=== PATIENT | male | born 1960 | race Caucasian/White ===

== ENCOUNTER 2018-10-02 08:36 | Day surgery (SDC) | payer OTHER, SELFPAY ==
--- NOTE | 2018-10-02 | PATH_ITS ---
[facility] Accession Number: [id number] . 01 Material submitted: . ASCENDING COLON POLYP . 02 Diagnosis: Ascending Colon, Polyp, Biopsy: Tubular adenoma. MRV/10/06/2018 . 02 Electronically signed: . Sailaja Marcos MD, Pathologist NPI- [id number] . 01 Gross description: . ASCENDING COLON POLYP: Received in formalin are multiple fragment(s) of wagner, soft tissue measuring 0.7 x 0.6 x 0.2 cm in aggregate submitted entirely in 1 cassette(s) /CKI /CKI . 02 Pathologist provided ICD-10: D12.2 . 02 CPT . 388329 Performed at: 01 [facility] [place] [address] [id number] MD Hiro Apodaca MD Phone: [phone] Performed at: 02 [facility] [place] [address] [place], [place] [id number] MD Sailaja Marcos MD Phone: [phone]
[2018-10-02 09:05] VITALS: BP 131/84; PULSE 68; RESP 16; TEMP 36.4; O2SAT 98; BMI 30.9
[2018-10-02] MEDS: SODIUM CHLORIDE 0.9% 1,000 ML 200 ML IV (09:13)
--- NOTE | 2018-10-02 10:10 | PM.HP.1 ---
History of Present Illness Date Patient Seen: 10/02/18 Time Patient Seen: 10:11 Chief complaint: colonoscopy [id number] Narrative: Patient is gentleman whose last colonoscopy was 7 years ago. He was advised to have repeat exam in is here in follow-up. No family history and no personal history of colon cancer Patient History Medical History Hearing deficit (Chronic) Hemorrhoid (Chronic ~1978) Herpes (Chronic) Tinnitus (Chronic) Vision disorder (Chronic) Surgical History Anal fissure (Resolved ~2013) Anesthesia (Resolved) History of tonsillectomy (~1967) Status post hemorrhoidectomy (~1987) Status post hemorrhoidectomy (~1990) Family & Social History Family History: Reviewed 10/02/18 by Christian Deal MD Social History: household members spouse Tobacco & Substance use: Smoking Status Never smoker alcohol intake current Meds Home Medications Medication Instructions Recorded Confirmed Type aspirin 81 mg tablet,delayed 81 mg PO DAILY 07/22/18 07/22/18 History release ketoconazole 2 % topical cream See Label Instructions TOP BID #30 07/22/18 Rx gram atorvastatin [Lipitor] 20 mg PO HS #90 tab 07/28/18 Rx Allergies Allergy/AdvReac Type Severity Reaction Status Date / Time No Known Drug Allergies Allergy Verified 07/22/18 09:54 Exam Vital Signs (past 8 hours): - 10/02/18 09:05 Temperature 97.5 F L Pulse Rate 68 Respiratory Rate 16 Blood Pressure 131/84 Pulse Oximetry 98 Oxygen Delivery Method Room Air Narrative Exam Narrative: No apparent distress. Pupils are small equal. Lungs are clear no rales or rhonchi heart regular rate and rhythm no murmur gallop abdomen is scaphoid soft nontender without mass. Alert and oriented x3. Assessment & Plan Plan: Assessment/Plan Narrative: Proceed to colonoscopy. I have discussed the procedure and the rationale with the patient including risks of bleeding, perforation which would necessitate a major operation, failure to find remove all lesions and the potential to tattoo. They appeared to understand and wished to proceed.
--- NOTE | 2018-10-02 10:13 | PM.PREOP ---
Pre-operative Note Interval Note Pre-op Check: Yes History & Physical exam performed today by Physician Changes: No ASA Class (for procedural sedation): I
[2018-10-02] MEDS: fentaNYL 250 MCG/5 ML INJ IV (10:28)
[2018-10-02] MEDS: MIDAZOLAM 5 MG/5 ML VIAL IV (10:29)
--- NOTE | 2018-10-02 10:43 | PM.OP.ENDO ---
Operative Date/Time/Diagnoses Date of procedure: 10/02/18 Time of procedure: 10:43 Pre-op diagnosis: Screening examination. Last colonoscopy 7 years ago. Post-op diagnosis: same (Small polyp ascending colon. Sigmoid diverticulosis.) Procedure & Clinicians Study performed: Colonoscopy with cold biopsy Same procedure as scheduled: Yes Indications: screening Surgeon: Christian Deal Procedure Notes SCOAP/Timeout: Performed Procedure in detail: The patient was placed in the left lateral decubitus position and underwent IV sedation directed by the surgeon consisting of fentanyl and Versed. Digital exam was remarkable for an increased sphincter tone. Prostate is flat.. The scope was inserted and advanced through the rectum into the sigmoid, descending, transverse, and ascending colon. I noted the patient had sigmoid diverticulosis. No other lesions were seen. The cecum was reached by inserting a stiffener. I identified by the ileocecal valve and the appendiceal opening. The scope was gradually brought out. A small single Polyp was identified and removed in the distal ascending colon. I continued outward slowly.. The scope ultimately was retroflexed in the rectum. The appearance was normal. The scope was removed and the patient tolerated the procedure well prep. Prep was good. Scope withdrawal time: 12 min Sedation minutes: 30 Findings: diverticulosis (Sigmoid) and polyp (One very small polyp) Specimen(s): other (Polyp) Complications: none Recommendations: Colonscopy in 5 years (Unless this polyp is not neoplastic. Then 10 years would be more appropriate.) Follow up: as needed Disposition: PACU
[2018-10-02 10:46] VITALS: BP 119/76; PULSE 56; RESP 17; TEMP 36.6; O2SAT 99
[2018-10-02 10:51] VITALS: BP 125/76; PULSE 56; RESP 17; O2SAT 98
[2018-10-02 10:56] VITALS: BP 109/77; PULSE 55; RESP 16; O2SAT 98
[2018-10-02 11:01] VITALS: BP 122/78; PULSE 53; RESP 18; O2SAT 99
[2018-10-02 11:10] VITALS: BP 128/73; PULSE 61; RESP 16; O2SAT 97
--- NOTE | 2018-10-02 11:26 | SUR.PHASEII ---
pt given operative note per Dr. Deal. Pt denies any complaints and drinking coffee and no complaints voiced. pt d/garrett with his .
== END 2018-10-02 11:25 | disposition home or self-care (01) ==
PROVIDERS: PCP Family Medicine; Visit Provider Specialist
PROC: 0DJD8ZZ Inspection of Lower Intestinal Tract, Via Natural or Artificial Opening Endoscopic (ICD-10-PCS; CPT 45378; principal; 2018-10-02 09:45)
DX: Z12.11 Encounter for screening for malignant neoplasm of colon (principal); K57.30 Diverticulosis of large intestine without perforation or abscess without bleeding; D12.2 Benign neoplasm of ascending colon
CPT/HCPCS: 45380; 99152; 99153; J2250; J3010

== ENCOUNTER → 2019-11-09 07:33 | Outpatient (CLI) | payer OTHER, SELFPAY ==
[2019-11-09 08:24] LABS: Add Manual Diff / Slide Review NO; Basophils Absolute Auto 100 /uL (0-100); Basophils Percent Auto 1.1 % (0-2); Eosinophils Absolute Auto 200 /uL (0-450); Eosinophils Percent Auto 4.2 % (2-4); Hematocrit 41.9 % (41-53); Hemoglobin 14.5 g/dL (13.5-17.5); Lymphocytes Absolute Auto 1800 /uL (1100-4500); Lymphocytes Percent Auto 36.1 % (25-40); Mean Corpuscular HGB Conc 34.6 % (30-36); Mean Corpuscular Hemoglobin 32.1 PG (26-34); Mean Corpuscular Volume 92.8 fL (80-100); Monocytes Absolute Auto 400 /uL (0-900); Monocytes Percent Auto 7.8 % (3-14); Neutrophils Absolute Auto 2600 /uL (1500-7000); Neutrophils Percent Auto 50.8 % (50-75); Platelet Count 164 X10^3/uL (150-400); Red Blood Cell Count 4.52 X10^6/uL (4.5-5.9); Red Cell Distribution Width 12.8 % (11.6-14.8); White Blood Cell Count 5.1 X10^3/uL (4.5-11.0)
[2019-11-09 08:38] LABS: Alanine Aminotransferase 31 IU/L (<50); Albumin 4.4 g/dL (3.5-5.0); Albumin Globulin Ratio 1.5 (1.0-2.8); Alkaline Phosphatase 61 U/L (38-126); Aspartate Aminotransferase 39 IU/L (17-59); BUN Creatinine Ratio 18.8 (6-22); Bilirubin Total 1.2 mg/dL (0.2-1.3); Blood Urea Nitrogen 15 mg/dL (9-20); Calcium 9.3 mg/dL (8.4-10.2); Carbon Dioxide 28 mmol/L (22-32); Chloride 102 mmol/L (98-107); Cholesterol 188 mg/dL (140-199); Estimated Glomerular Filt Rate > 60.0 mL/min (>60); Globulin 2.9 g/dL (1.7-4.1); Glucose 97 mg/dL (70-100); HDL Cholesterol 69 mg/dL (40-60); HEMOLYSIS < 15 (0-50); LDL Cholesterol Calculated 100 mg/dL (<100); Potassium 4.4 mmol/L (3.4-5.1); Sodium 138 mmol/L (137-145); Total Protein 7.3 g/dL (6.3-8.2); Triglycerides 96 mg/dL (35-150)
[2019-11-09 09:21] LABS: TSH w/ Reflex to FT4 1.95 uIU/mL (0.47-4.68)
== END ==
PROVIDERS: PCP Family Medicine; Visit Provider Family Medicine
DX: E78.00 Pure hypercholesterolemia, unspecified (principal)
CPT/HCPCS: 36415; 80053; 80061; 84443; 85025

== ENCOUNTER → 2020-11-18 08:17 | Outpatient (CLI) | payer OTHER, SELFPAY ==
[2020-11-18 09:02] LABS: Add Manual Diff / Slide Review NO; Basophils Absolute Auto 0 /uL (0-100); Basophils Percent Auto 0.9 % (0-2); Eosinophils Absolute Auto 200 /uL (0-450); Eosinophils Percent Auto 4.2 % (2-4); Hematocrit 43.8 % (41-53); Hemoglobin 14.7 g/dL (13.5-17.5); Lymphocytes Absolute Auto 1600 /uL (1100-4500); Lymphocytes Percent Auto 32.5 % (25-40); Mean Corpuscular HGB Conc 33.7 % (30-36); Mean Corpuscular Hemoglobin 31.4 PG (26-34); Mean Corpuscular Volume 93.2 fL (80-100); Monocytes Absolute Auto 400 /uL (0-900); Monocytes Percent Auto 7.9 % (3-14); Neutrophils Absolute Auto 2700 /uL (1500-7000); Neutrophils Percent Auto 54.5 % (50-75); Platelet Count 165 X10^3/uL (150-400)
[2020-11-18 09:09] LABS: Alanine Aminotransferase 37 IU/L (<50); Albumin 4.4 g/dL (3.5-5.0); Albumin Globulin Ratio 1.6 (1.0-2.8); Alkaline Phosphatase 65 U/L (38-126); Aspartate Aminotransferase 43 IU/L (17-59); BUN Creatinine Ratio 11.4 (6-22); Blood Urea Nitrogen 9 mg/dL (9-20); Carbon Dioxide 28 mmol/L (22-32); Chloride 103 mmol/L (98-107); Cholesterol 161 mg/dL (140-199); Estimated Glomerular Filt Rate > 60.0 mL/min (>60); Globulin 2.7 g/dL (1.7-4.1); Glucose 112 mg/dL (70-100); HDL Cholesterol 68 mg/dL (40-60); HEMOLYSIS < 15 (0-50); LDL Cholesterol Calculated 74 mg/dL (<100); Potassium 4.4 mmol/L (3.4-5.1); Sodium 135 mmol/L (137-145); Total Protein 7.1 g/dL (6.3-8.2); Triglycerides 95 mg/dL (35-150)
[2020-11-18 09:38] LABS: Prostate Specific Antigen Scrn 0.684 ng/mL (0.1-4.0)
== END ==
PROVIDERS: PCP Family Medicine; Referring Provider Family Medicine; Visit Provider Family Medicine
DX: E78.00 Pure hypercholesterolemia, unspecified (principal); Z13.6 Encounter for screening for cardiovascular disorders; Z13.1 Encounter for screening for diabetes mellitus; Z12.5 Encounter for screening for malignant neoplasm of prostate
CPT/HCPCS: 36415; 80053; 80061; 85025; G0103

== ENCOUNTER → 2022-11-18 08:25 | Outpatient (CLI) | payer OTHER, SELFPAY ==
[2022-11-18 08:53] LABS: Add Manual Diff / Slide Review NO; Basophils Absolute Auto 100 /uL (0-100); Eosinophils Absolute Auto 200 /uL (0-450); Hematocrit 41.5 % (41-53); Hemoglobin 14.4 g/dL (13.5-17.5); Lymphocytes Absolute Auto 1400 /uL (1100-4500); Lymphocytes Percent Auto 26.4 % (25-40); Mean Corpuscular HGB Conc 34.7 % (30-36); Mean Corpuscular Volume 92.2 fL (80-100); Monocytes Absolute Auto 400 /uL (0-900); Monocytes Percent Auto 7.6 % (3-14); Neutrophils Absolute Auto 3400 /uL (1500-7000); Platelet Count 178 X10^3/uL (150-400); Red Cell Distribution Width 13.2 % (11.6-14.8); White Blood Cell Count 5.4 X10^3/uL (4.5-11.0)
[2022-11-18 09:06] LABS: Alanine Aminotransferase 51 IU/L (<50); Albumin 4.4 g/dL (3.5-5.0); Albumin Globulin Ratio 1.5 (1.0-2.8); Alkaline Phosphatase 74 U/L (38-126); Aspartate Aminotransferase 41 IU/L (17-59); BUN Creatinine Ratio 9.6 (6-22); Bilirubin Total 0.8 mg/dL (0.2-1.3); Blood Urea Nitrogen 8 mg/dL (9-20); Calcium 8.9 mg/dL (8.4-10.2); Carbon Dioxide 26 mmol/L (22-32); Chloride 101 mmol/L (98-107); Cholesterol 163 mg/dL (140-199); Estimated Glomerular Filt Rate > 60 mL/min (>60); Globulin 2.9 g/dL (1.7-4.1); Glucose 99 mg/dL (80-110); HDL Cholesterol 63 mg/dL (40-60); HEMOLYSIS < 15 (0-50); LDL Cholesterol Calculated 81 mg/dL (<100); Potassium 4.4 mmol/L (3.4-5.1); Sodium 137 mmol/L (137-145); Total Protein 7.3 g/dL (6.3-8.2); Triglycerides 95 mg/dL (35-150)
== END ==
PROVIDERS: PCP Family Medicine; Referring Provider Family Medicine; Visit Provider Family Medicine
DX: Z12.5 Encounter for screening for malignant neoplasm of prostate (principal); Z13.6 Encounter for screening for cardiovascular disorders; E78.00 Pure hypercholesterolemia, unspecified
CPT/HCPCS: 36415; 80053; 80061; 85025; G0103

== ENCOUNTER → 2023-07-31 14:30 | Outpatient (CLI) | payer OTHER, SELFPAY ==
[2023-07-31 15:22] LABS: Add Manual Diff / Slide Review NO; Basophils Absolute Auto 100 /uL (0-100); Eosinophils Absolute Auto 200 /uL (0-450); Eosinophils Percent Auto 2.9 % (2-4); Hematocrit 39.3 % (41-53); Hemoglobin 13.6 g/dL (13.5-17.5); Lymphocytes Absolute Auto 2200 /uL (1100-4500); Lymphocytes Percent Auto 32.3 % (25-40); Mean Corpuscular HGB Conc 34.6 % (30-36); Mean Corpuscular Hemoglobin 31.8 PG (26-34); Mean Corpuscular Volume 91.9 fL (80-100); Monocytes Absolute Auto 400 /uL (0-900); Monocytes Percent Auto 6.5 % (3-14); Neutrophils Absolute Auto 3900 /uL (1500-7000); Neutrophils Percent Auto 57.3 % (50-75); Platelet Count 215 X10^3/uL (150-400); Red Blood Cell Count 4.28 X10^6/uL (4.5-5.9); Red Cell Distribution Width 12.7 % (11.6-14.8); White Blood Cell Count 6.8 X10^3/uL (4.5-11.0)
[2023-07-31 15:39] LABS: Erythrocyte Sedimentation Rate 10 MM/HR (0-15)
[2023-07-31 15:41] LABS: C-Reactive Protein Quant 0.6 mg/dL (<1.0)
== END ==
PROVIDERS: PCP Family Medicine; Referring Provider Family Medicine; Visit Provider Family Medicine
DX: R22.1 Localized swelling, mass and lump, neck (principal)
CPT/HCPCS: 36415; 85025; 85651; 86140

== ENCOUNTER → 2023-08-05 11:10 | Outpatient (CLI) | payer OTHER, SELFPAY ==
--- NOTE | 2023-08-05 11:11 | DI.US.S_ITS ---
PROCEDURE: US THYROID INDICATIONS: SOFT TISSUE MASS IN NECK TECHNIQUE: Real-time scanning was performed of the thyroid gland, with image documentation. COMPARISON: None. FINDINGS: Right: Thyroid lobe measures 6.1 x 3.7 x 3.7 cm, and contains a large complicated cyst. Left: Thyroid lobe measures 4.0 x 1.6 x 1.5 cm, and is is somewhat heterogeneous in echotexture. Isthmus: 6 mm thick. Nodule number: 1 Location: Right middle pole Size: 4.5 x 2.9 x 3.7 cm. Composition: Predominantly cystic with low level internal echoes Echogenicity: Hypoechoic Shape: wider than tall. Margins: Smooth Echogenic foci: Punctate Total points: 5 ACR TI-RADS category: Moderately suspicious IMPRESSION: There is a large lesion of the right lobe of the thyroid measuring 4.5 cm in maximum diameter. It most likely simply represents a hemorrhagic cyst. However, it has imaging characteristics that place it in the moderately suspicious category. Please see recommendations below. Consider ultrasound-guided cyst aspiration and FNA a possible peripheral solid component. ACR TI-RADS definitions and recommendations: TI-RADS 1 (benign): 0 points. FNA not needed. TI-RADS 2 (not suspicious): 2 points. FNA not needed. TI-RADS 3 (mildly suspicious): 3 points. * FNA if 2.5 cm or larger, follow up if 1.5 cm or larger (at 1, 3, and 5 years). TI-RADS 4 (moderately suspicious): 4-6 points. * FNA if 1.5 cm or larger, follow up if 1 cm or larger (at 1, 2, 3, and 5 years). TI-RADS 5 (highly suspicious): 7 points or more. * FNA if 1 cm or larger, follow up if 0.5 cm or larger (every year for 5 years). Dictated by: Chung Gonzales M.D. on 08/05/2023 at 14:38 Approved by: Chung Gonzales M.D. on 08/05/2023 at 14:41
== END ==
PROVIDERS: PCP Family Medicine; Referring Provider Family Medicine; Visit Provider Family Medicine
DX: R22.1 Localized swelling, mass and lump, neck (principal); E07.89 Other specified disorders of thyroid
CPT/HCPCS: 76536

== ENCOUNTER → 2023-08-19 13:57 | Outpatient (CLI) | payer OTHER, SELFPAY ==
--- NOTE | 2023-08-19 | PATH_ITS ---
Note [facility] Accession Number: [id number] TESTS RESULT FLAG UNITS REF RANGE LAB Clinician Provided Cytology Information No. of containers..01 Other (Miscellaneous) No. of containers..08 Previously Prepared Cytology Slide Source: RIGHT MID THYROID DIAGNOSIS: RIGHT MID THYROID NEGATIVE FOR MALIGNANT CELLS. [place] CATEGORY II. SPECIMEN BARELY SATISFACTORY AND IS LIMITED BY LOW CELLULARITY. IT CONSISTS OF SCANT, BENIGN FOLLICULAR CELLS, HEMOSIDERIN-LADEN MACROPHAGES, SCANT COLLOID, AND BLOOD. THIS PATTERN IS MOST CONSISTENT WITH A BENIGN FOLLICULAR NODULE. Pathologist ICD10: 01 E04.1 Signed out by: Nneka Miller MD, Pathologist NPI- [id number] Performed by: Magno Lee, Logging Rafter Laborer ([facility]) Gross description: 20 CC, PINK, HAZY /RZA 08/21/2023 1046 Local FLAG LEGEND: L-Low Normal,H-High Normal,LL-Alert Low,HH-Alert High <-Panic Low,>-Panic High,A-Abnormal,AA-Critical Abnormal Performed at: 01 =[facility] [address], [place] [address] Hiro Apodaca MD, Performed at: 01 [facility] [address], [place], [place] [id number] MD Hiro Apodaca MD Phone: [phone]
--- NOTE | 2023-08-19 14:00 | DI.US.S_ITS ---
PROCEDURE: US FINE NEEDLE ASPIRATION INDICATIONS: NODULE TECHNIQUE: The indications, alternatives, benefits, risks, and complications of the procedure were explained to the patient. Written informed consent was obtained and placed in the chart. The thyroid region was examined sonographically and a site was chosen for ultrasound guided percutaneous sampling. The skin was prepared and draped in the usual fashion, and anesthetized with 1% lidocaine infiltrated from the skin down to the thyroid gland. Multiple passes were then performed, with contents emptied into an appropriate pathology specimen container. A bandage was applied to the area of access at completion of the study. COMPARISON: None. FINDINGS: Location(s) of lesion(s) sampled: Right mid thyroid [place]: 25 gauge hypodermic needles. Number of passes: 9 Medications: 1% lidocaine for local anaesthesia. Complications: None. IMPRESSION: Successful ultrasound-guided thyroid nodule fine needle aspiration, with cytology results pending. Please see chart below for management recommendations based on cytology results. Note: The previously described punctate calcifications had imaging appearance of colloid at time of exam. [facility] ReportingRecommendationsNon-diagnostic* Repeat US-guided FNA, with on-site cytology evaluation if possible. * Repeated non-diagnostic nodules without high suspicion US features: close observation vs surgical consult. * Consider surgery if nodule has high suspicion US features, grows >20% in 2 dimensions on followup, or patient has clinical risk factors for malignancy. Benign* If nodule has high suspicion US features: repeat US and FNA within 12 months. * If nodule has low to intermediate suspicion US features: repeat US at 12-24 months. If nodule grows (20% increase in at least 2 dimensions, with minimal increase of 2 mm or >50% change in volume), or development of new suspicious US features, then repeat FNA or continue followup. * If nodule has very low suspicion US features: followup US at >24 months. Atypia of undetermined significance, follicular lesion of undetermined significanceRepeat FNA, molecular testing, followup US, or surgical consult.Follicular neoplasm, suspicious for follicular neoplasmSurgical consult; also consider molecular testing. Suspicious for malignancySurgical consult.MalignantSurgical consult. Dictated by: Richard Hatch M.D. on 08/19/2023 at 16:40 Approved by: Richard Hatch M.D. on 08/19/2023 at 16:40
== END ==
PROVIDERS: PCP Family Medicine; Referring Provider Family Medicine; Visit Provider Family Medicine
DX: E04.1 Nontoxic single thyroid nodule (principal)
CPT/HCPCS: 10005

== ENCOUNTER → 2023-09-01 11:27 | Outpatient (CLI) | payer OTHER, SELFPAY ==
--- NOTE | 2023-09-01 11:28 | DI.CT.S_ITS ---
PROCEDURE: CT SOFT TISSUE NECK W CON INDICATIONS: Thyroid mass and cyst TECHNIQUE: After the administration of intravenous contrast, 3.0 mm axial sections acquired from the sella to the aortic arch. 3 mm thick coronal and sagittal reformats were generated. For radiation dose reduction, the following was used: automated exposure control. COMPARISON: None. FINDINGS: Skull Base: The visualized intracranial contents, skull, and orbits are unremarkable. Visualized paranasal sinuses are clear. Pharynx and Larynx: The nasopharyngeal airway is patent and midline. Parapharyngeal soft tissues including palatine tonsils and base of the tongue are normal. Retropharyngeal space unremarkable. Normal appearance of the false and true vocal cords. Muscles and Fascial Planes: Fascial planes are well maintained. No abscess or mass lesion. Lymph Nodes: No evidence of adenopathy. Vasculature: Unremarkable. Submandibular and Parotid Glands: Normal in size and attenuation. Thyroid: Homogeneous ovoid 6 cystic structure in the right lobe of the thyroid measures 4.3 x 3.0 by 3.0 cm. Cyst is well-defined without internal enhancement. Left lobe of the thyroid normal Bones: No acute fracture. No osteolytic or blastic lesion is evident. Normal bone mineralization. Degenerative disc disease and arthropathy in the cervical spine. Lung Apices: The visualized lung apices are clear. IMPRESSION: Simple right thyroid ovoid cystic structure without enhancement consistent with colloid cyst. No adenopathy Approved by: Nito Pope M.D. on 09/01/2023 at 17:32
[2023-09-01 11:50] LABS: Estimated Glomerular Filt Rate > 60 mL/min (>60)
== END ==
PROVIDERS: Radiology Diagnostic Radiology; PCP Family Medicine; Referring Provider Family Medicine; Visit Provider Family Medicine
DX: R22.1 Localized swelling, mass and lump, neck (principal); E04.1 Nontoxic single thyroid nodule
CPT/HCPCS: 36415; 70491; 82565

== ENCOUNTER 2024-06-08 08:27 | Day surgery (SDC) | payer OTHER, SELFPAY ==
[2024-06-08 09:04] VITALS: BP 130/80; PULSE 48; RESP 16; TEMP 36.2; O2SAT 100
[2024-06-08] MEDS: LACTATED RINGERS 1,000 ML 42 ML IV (09:04)
--- NOTE | 2024-06-08 09:30 | P.HP_ITS ---
History of Present Illness History of Present Illness Date Patient Seen: 06/08/24 Time Patient Seen: 09:30 Chief complaint: SDC Narrative: 64-year-old man personal history of colonic polyps here for screening colonoscopy. Last colonoscopy 2017. No family history of colon cancer. No abdominal concerns today. [facility] Medical History (Updated 08/25/23 @ 15:39 by Michoacano Mazariegos MD) Vision disorder Hearing deficit Herpes Tinnitus Hemorrhoid (~1978) Surgical History Anesthesia Anal fissure (~2013) History of tonsillectomy (~1967) Status post hemorrhoidectomy (~1990) Status post hemorrhoidectomy (~1987) Family History (Updated 11/16/19 @ 09:58 by Michoacano Mazariegos MD) Grandfather Heart disease Grandmother Mental health problem Grandfather Stroke Brother Suicide Social History marital status: household members: spouse Smoking Status: Never smoker alcohol intake: current substance use type: does not use Meds Home Medications and Allergies Home Medications Medication Instructions Recorded Confirmed Type aspirin 81 mg tablet,delayed 81 mg PO DAILY 07/22/18 06/08/24 History release (Adult Low Dose Aspirin) atorvastatin 20 mg tablet 20 mg PO ONCE PM #90 tabs 02/16/24 06/08/24 Rx famotidine 20 mg tablet 20 mg PO DAILY 06/08/24 06/08/24 History Allergies Allergy/AdvReac Type Severity Reaction Status Date / Time No Known Drug Allergies Allergy Verified 06/08/24 08:49 Exam Vital Signs (past 8 hours): - 06/08/24 09:04 Temperature 97.2 F L Pulse Rate 48 L Respiratory Rate 16 Blood Pressure 130/80 Pulse Oximetry 100 Oxygen Delivery Method Room Air Oxygen Delivery Method Room Air Narrative Exam Narrative: General adult man alert oriented no acute distress Chest nonlabored respiration Extremities warm well perfused Assessment & Plan Assessment & Plan narrative: The patient requires colorectal screening and colonoscopy is recommended. Technical details were discussed. Risks, benefits, alternatives explained. Risks including but not limited to myocardial infarction, aspiration, bleeding, pain, missed lesion, incomplete examination, need for further radiographic studies, intestinal injury, and need for major abdominal surgery were discussed. All questions were answered to their satisfaction, and they are in agreement with this plan. Time-Based Coding :: [TOTAL MINUTES] spent with patient and on the chart (including review of chart, obtaining history, exam, reviewing outside data, placing orders, documenting exam and treatment plan, and counseling patient) on [DATE].
--- NOTE | 2024-06-08 09:32 | P.OP.COLON_ITS ---
Operative Date/Time/Diagnoses Date of procedure: 06/08/24 Time of procedure: 09:32 Pre-op diagnosis: Personal history of colonic polyps Procedure & Clinicians Study performed: Screening colonoscopy Same procedure as scheduled: Yes Indications: Colorectal screening Surgeon: Jakob Hoang Procedure Notes Procedure in detail: The history and physical was performed/updated and the patient is ASA class is 2. The procedure was discussed in detail with the patient. Potential risks complications including infection, bleeding, missed diagnosis, perforation, need for surgery, and were explained. Their questions were answered and informed consent was obtained. Patient was brought to the procedure room and placed standard monitoring equipment. The patient's vital signs were monitored continuously throughout the entire procedure. Prior to starting time-out was performed. The patient was placed in the left lateral recumbent position. Procedural sedation was administered by anesthesia. Examination began with a thorough inspection of the perianal area there was no evidence of fissures, fistulae, external hemorrhoids or cutaneous malignancy. The colonoscopy scope was then placed into the anal canal and was advanced to the cecum, which was identified by the ileocecal valve, the appendiceal orifice and the confluence of the taenia. The scope was then slowly withdrawn examining colon thoroughly in all directions, irrigating it of any residual stool. The scope was retroflexed within the rectum The patient tolerated the procedure well. They will be discharged once criteria are met. The prep was of good/excellent quality. The withdrawl time was 6 minutes. FINDINGS * No mass or polyps * Mild diverticulosis of descending colon Specimen(s): none sent Impression: Diverticulosis Post-procedure Recommendations: Colonoscopy in 10 years and High fiber diet Disposition: same day surgery
[2024-06-08 09:54] VITALS: BP 110/71; PULSE 45; RESP 13; TEMP 35.9; O2SAT 99
[2024-06-08 09:59] VITALS: BP 113/76; PULSE 47; RESP 15; O2SAT 100
[2024-06-08 10:04] VITALS: BP 122/80; PULSE 42; RESP 15; TEMP 35.9; O2SAT 99
== END 2024-06-08 10:13 | disposition home or self-care (01) ==
PROVIDERS: PCP Family Medicine; Referring Provider Surgery; Visit Provider Surgery
PROC: 0DJD8ZZ Inspection of Lower Intestinal Tract, Via Natural or Artificial Opening Endoscopic (ICD-10-PCS; CPT 45378; principal; 2024-06-08 09:45)
DX: Z12.11 Encounter for screening for malignant neoplasm of colon (principal); Z86.010 Personal history of colon polyps; K57.30 Diverticulosis of large intestine without perforation or abscess without bleeding
CPT/HCPCS: 45378; J2704

== ENCOUNTER → 2025-02-02 09:46 | Outpatient (CLI) | payer OTHER, SELFPAY ==
[2025-02-02 11:06] LABS: Add Manual Diff / Slide Review NO; Basophils Absolute Auto 100 /uL (0-100); Basophils Percent Auto 1.1 % (0-2); Eosinophils Absolute Auto 100 /uL (0-450); Eosinophils Percent Auto 2.5 % (2-4); Hematocrit 41.5 % (41-53); Hemoglobin 14.4 g/dL (13.5-17.5); Lymphocytes Absolute Auto 1500 /uL (1100-4500); Lymphocytes Percent Auto 28.7 % (25-40); Mean Corpuscular HGB Conc 34.6 % (30-36); Mean Corpuscular Volume 92.3 fL (80-100); Monocytes Absolute Auto 400 /uL (0-900); Monocytes Percent Auto 7.9 % (3-14); Neutrophils Absolute Auto 3200 /uL (1500-7000); Neutrophils Percent Auto 59.8 % (50-75); Platelet Count 156 X10^3/uL (150-400); Red Cell Distribution Width 14.2 % (11.6-14.8); White Blood Cell Count 5.4 X10^3/uL (4.5-11.0)
[2025-02-02 11:33] LABS: Alanine Aminotransferase 27 IU/L (<50); Albumin 4.6 g/dL (3.5-5.0); Albumin Globulin Ratio 1.9 (1.0-2.8); Alkaline Phosphatase 64 U/L (38-126); Aspartate Aminotransferase 36 IU/L (17-59); BUN Creatinine Ratio 12.9 (6-22); Bilirubin Total 1.2 mg/dL (0.2-1.3); Blood Urea Nitrogen 11 mg/dL (9-20); Calcium 9.4 mg/dL (8.4-10.2); Carbon Dioxide 25 mmol/L (22-32); Chloride 102 mmol/L (98-107); Cholesterol 194 mg/dL (140-199); Estimated Glomerular Filt Rate > 60 mL/min (>60); Globulin 2.4 g/dL (1.7-4.1); Glucose 96 mg/dL (80-110); HDL Cholesterol 84 mg/dL (40-60); HEMOLYSIS < 15 (0-50); LDL Cholesterol Calculated 93 mg/dL (<100); Potassium 4.1 mmol/L (3.4-5.1); Sodium 134 mmol/L (137-145); Triglycerides 86 mg/dL (35-150)
[2025-02-02 12:12] LABS: TSH w/ Reflex to FT4 2.01 uIU/mL (0.47-4.68)
== END ==
PROVIDERS: PCP Family Medicine; Referring Provider Family Medicine; Visit Provider Family Medicine
DX: Z00.00 Encounter for general adult medical examination without abnormal findings (principal); E78.00 Pure hypercholesterolemia, unspecified; E04.1 Nontoxic single thyroid nodule
CPT/HCPCS: 36415; 80053; 80061; 84443; 85025